=== PATIENT | female | born 1990 | race Caucasian/White ===

== ENCOUNTER 2024-02-14 15:48 | Emergency (ER) | payer BC | END 2024-02-14 17:45 | disposition home or self-care (01) | LOC: NAV ERS 15:48 | DX: S80.02XA Contusion of left knee, initial encounter (principal); S80.01XA Contusion of right knee, initial encounter; I10 Essential (primary) hypertension; W22.8XXA Striking against or struck by other objects, initial encounter | CPT/HCPCS: 99283 ==